=== PATIENT | male | born 1980 ===

== ENCOUNTER 2023-08-20 16:00 | Outpatient (CLI) | payer BC | END 2023-08-20 16:01 | disposition home or self-care (01) | LOC: ULT 16:00 | PROVIDERS: ATTEND Physician Assistant | DX: I82.401 Acute embolism and thrombosis of unspecified deep veins of right lower extremity (principal) ==

== ENCOUNTER 2025-07-23 08:02 | Outpatient (CLI) | payer BC | END 2025-07-23 08:03 | disposition home or self-care (01) | LOC: BICRAD 08:02 | PROVIDERS: ATTEND Nurse Practitioner Family | DX: M25.531 Pain in right wrist (principal) ==